=== PATIENT | female | born 1955 | race Caucasian/White ===

== ENCOUNTER → 2017-01-19 | Outpatient (CLI) | payer BC ==
[2017-01-19 13:09] LABS: AADO2 Arterial 35.2 mmHg (7.0-24.0); Allen Test ACCEPTAB; Arterial Base Excess 3.4 mmol/L (-3.0-3); Arterial COHb 0.5 % (0.0-3.0); Arterial Fraction of Oxyhgb 91.9 % (93.0-99.0); Arterial MetHb 0 % (0.0-1.5); Arterial Total Hemglobin 14.4 g/dl (12.0-18.0); MODE ROOM AIR
== END | disposition home or self-care (01) ==
LOC: PUL 12:45
PROVIDERS: ATTEND Internal Medicine Pulmonary Disease
DX: R06.02 Shortness of breath (principal)
CPT/HCPCS: 36600; 82803